=== PATIENT | female | born 1965 | race Caucasian/White ===

== ENCOUNTER 2024-04-16 11:50 | Emergency (ER) | payer MEDICARE, MEDICAID ==
[~2024-04-16] VITALS: Ht 160 cm; Wt 75.7 kg
[2024-04-16] MEDS ORDERED: ALBU8HFA INH (14:04)
[2024-04-16] MEDS ORDERED: AZIT250T83 PO (14:04)
[2024-04-16] MEDS ORDERED: HYDR473S79 PO (14:04)
[2024-04-16 14:12] VITALS: BP 152/108; PULSE 77; RESP 18; TEMP 98.3; O2SAT 93
== END 2024-04-16 14:14 | disposition home or self-care (01) ==
LOC: ER 11:51
DX: J22 Unspecified acute lower respiratory infection (principal); F17.200 Nicotine dependence, unspecified, uncomplicated; Z88.0 Allergy status to penicillin; Z88.2 Allergy status to sulfonamides; Z88.8 Allergy status to other drugs, medicaments and biological substances
CPT/HCPCS: 71045; 87502; 87503; 99284

== ENCOUNTER 2024-09-14 12:23 | Day surgery (SDC) | payer MEDICARE, MEDICAID ==
[2024-09-14] VITALS (8 sets, daily range): BP systolic 100–122; BP diastolic 62–76; PULSE 103–106; RESP 14–16; TEMP 98.3; O2SAT 97–98
[~2024-09-14] VITALS: Ht 160 cm; Wt 82.4 kg
[~2024-09-14 12:23] MED LIST: AMLO2.5T5 PO; ASPI81TA52 PO; ATOR40TA72 PO; CARV6.253 PO; CLOP75TA34 PO; DULA0.75 SQ; EMPA10TA PO; FENO160T PO; HYDR-3964 PO; INSU100I52 SQ; ISOS60TA71 PO; LANTUS SQ; NITR0.4T51 SL
--- NOTE | 2024-09-14 13:30 | PROCEDURE NOTE CC ---
Procedure Note CC Providers to CC ~ Procedure Name: Thoracentesis Description: Indication: Pleural Effusion Consent: Pt Time-out: Done Site: Right Anesthesia: Local Technique: US guided Fluid: 1500ml Blood-tinged Complication: none EBL: 0ml Sepsis Screening Reassessment Date: Sep 14, [address]ER MD Sep 14, 2024 13:30
--- NOTE | 2024-09-14 13:36 | HISTORY AND PHYSICAL ---
History & Physical - Short Providers to CC ~ History of Present Illness Chief Complain & History SOB Recent CABG *3 c/o SOB. CXR showing large R Pleural Effusion. Sent for thoracentesis Allergies: Coded Allergies: Penicillins (Unverified Allergy, Unknown, 04/16/24) moxifloxacin (Verified Allergy, Unknown, 09/14/24) sulfamethoxazole (Unverified Allergy, Unknown, 04/16/24) trimethoprim (Unverified Allergy, Unknown, 04/16/24) Uncoded Allergies: AVALOX (Allergy, Unknown, 04/16/24) Home Medications Home Medications Active Reported Clopidogrel (Clopidogrel Bisulfate) 75 Mg Tablet 1 Tab PO DAILY Atorvastatin Calcium 40 Mg Tablet 1 Tab PO DAILY Fenofibrate 160 Mg Tablet 1 Tab PO DAILY Aspirin EC (Aspirin) 81 Mg Tablet.dr 1 Tab PO DAILY 30 Days Isosorbide Mononitrate Er (Isosorbide Mononitrate) 60 Mg Tab.er.24h 1 Tab PO DAILY Insulin Aspart Flexpen (Insulin Aspart) 100 Unit/Ml (3 Ml) Insuln.pen 1 Units SQ TIDWM PRN Nitrostat SL* (Nitroglycerin) 0.4 Mg Tablet 1 Tab SL Q5MIN PRN Amlodipine Besylate 2.5 Mg Tablet 1 Tab PO HS Trulicity (Dulaglutide) 0.75 Mg/0.5 Ml Pen.injctr 0.75 Mg SQ Q7D Jardiance (Empagliflozin) 10 Mg Tablet 1 Tab PO QAM Lantus* (Insulin Glargine) 100 Unit/1 Ml Vial 50 Units SQ HS Hydrocodon-Acetaminophen 5-325 (Hydrocodone Bit/Acetaminophen) 5 Mg-325 Mg Tablet 0.5 Tab PO Q12H PRN Carvedilol 6.25 Mg Tablet 1 Tab PO BID ROS ROS SOB. Otherwise (-) Exam Cardiac: S1-2 reg Pulmonary: Decrease BS at bases Abdomen: Soft, non-tender, BS (+) Neurologic: Awake, alert Advance Care Planning Advanced Care plannin - 30 Minutes Problem\Assessment\Plan Problems: (1) SOB (shortness of breath) Status: Acute Additional Plan 1-R Pleural Effusion -Thoracentesis A Nurys Sepsis Screening Reassessment Date: Sep 14, [address] MD Sep 14, 2024 13:36
[2024-09-14] MEDS ORDERED: PANT40SU2 PO (13:43)
[2024-09-14] MEDS ORDERED: METO50TA16 PO (13:59)
[2024-09-14] MEDS ORDERED: FURO-150 PO (13:59)
[2024-09-14] MEDS ORDERED: DOCU-148 PO (13:59)
[2024-09-14] MEDS ORDERED: MIDO2.5T PO (13:59)
[2024-09-14] MEDS ORDERED: ASCO500C17 PO (13:59)
[2024-09-14] MEDS ORDERED: Heparin SQ (14:09)
== END 2024-09-14 15:15 ==
LOC: SSTAY O 12:23
PROVIDERS: ATTEND Thoracic Surgery (Cardiothoracic Vascular Surgery)
DX: J90 Pleural effusion, not elsewhere classified (principal); Z79.02 Long term (current) use of antithrombotics/antiplatelets; Z79.82 Long term (current) use of aspirin; Z79.84 Long term (current) use of oral hypoglycemic drugs; Z79.899 Other long term (current) drug therapy; Z88.0 Allergy status to penicillin; Z88.1 Allergy status to other antibiotic agents; Z88.2 Allergy status to sulfonamides; Z95.1 Presence of aortocoronary bypass graft; Z88.8 Allergy status to other drugs, medicaments and biological substances
CPT/HCPCS: 32555; C1729; A6258; A6449